=== PATIENT | female | born 1975 ===

== ENCOUNTER 2016-07-17 12:40 | Emergency (ER) | payer OTHER ==
--- NOTE | 2016-07-17 14:16 | ED PDOC ---
Lower Extremity Pain/Injury Time Seen by Provider: 07/17/16 12:44 Chief Complaint (Nursing): Lower Extremity Problem/Injury Chief Complaint (Provider): Left Hip/Knee Pain s/p Fall History Per: Patient History/Exam Limitations: no limitations Onset/Duration Of Symptoms: Hrs (earlier today) Current Symptoms Are (Timing): Still Present Severity: Moderate Additional Complaint(s): Jazmin Forrest is a 41 year old female, with no pertinent past medical history, who presents to the ED on 07/17/16 for the evaluation of a moderate amount of left hip/knee pain that she has experienced since having slipped and fallen while walking from a parking lot earlier today. Patient reports having landed directly onto the affected hip and that she had twisted the knee on her way to the ground. Denies head trauma or additional injuries. ED visit was prompted secondary to persistence of pain despite having medicated with Motrin 800mg. PMD: none Past Medical History Reviewed: Historical Data, Nursing Documentation, Vital Signs Vital Signs: Last Vital Signs Temp 98.7 F 07/17/16 12:41 Pulse 78 07/17/16 12:41 Resp 18 07/17/16 12:41 BP 96/45 L 07/17/16 12:41 Pulse Ox 98 07/17/16 12:41 - Medical History PMH: Hypothyroidism (Sriram's not on any meds) - Surgical History Surgical History: No Surg Hx - Family History Family History: States: Unknown Family Hx - Social History Current smoker - smoking cessation education provided: No Alcohol: Social Drugs: Denies - Home Medications Home Medications: Ambulatory Orders Medication Instructions Recorded Ibuprofen [Motrin] 600 mg PO TID 7 Days 01/06/16 - Allergies Allergies/Adverse Reactions: Allergies Allergy/AdvReac Type Severity Reaction Status Date / Time No Known Allergies Allergy Verified 07/17/16 12:41 Review of Systems Musculoskeletal: Positive for: Leg Pain (left hip/knee pain) Physical Exam - Reviewed Nursing Documentation Reviewed: Yes Vital Signs Reviewed: Yes - Physical Exam Appears: Positive for: Non-toxic, No Acute Distress Pulses-Dorsalis Pedis (L): 2+ Extremity: Positive for: Normal ROM (FROM of left knee/hip), Tenderness ( tenderness noted to left lateral hip/buttock; left knee is nontender). Negative for: Calf Tenderness, Deformity, Swelling Neurologic/Psych: Positive for: Alert, Oriented. Negative for: Motor/Sensory Deficits - Laboratory Results Urine POC: Negative - ECG O2 Sat by Pulse Oximetry: 98 (RA) Pulse Ox Interpretation: Normal - Radiology X-Ray: Interpreted by Me (L hip/pelvis and L knee x-rays) X-Ray Interpretation: No Acute Disease - Progress ED Course And Treament: Knee immobilizer and crutches provided. Medical Decision Making Medical Decision Makin:44 Initial Impression: left hip/knee injury; will r/o bony injury Initial Plan: * XR Left Hip w/Pelvis * XR Left Knee * Tramadol 50mg PO * Reevaluation Scribe Attestation: Documented by Nelda Pascual, acting as a scribe for Tyrell Yoon PA-C. Provider Scribe Attestation: All medical record entries made by the Scribe were at my direction and personally dictated by me. I have reviewed the chart and agree that the record accurately reflects my personal performance of the history, physical exam, medical decision making, and the department course for this patient. I have also personally directed, reviewed, and agree with the discharge instructions and disposition. Disposition - Clinical Impression Clinical Impression: Knee injury, Hip injury - Patient ED Disposition Is Patient to be Admitted: No - Disposition Referrals: Sarah Villalobos MD [Staff Provider] - Disposition: Routine/Home Disposition Time: 14:43 Condition: STABLE Additional Instructions: RICE Follow up with Dr. Villalobos for further evaluation. Instructions: Hip Sprain (ED), Knee Sprain (ED) Forms: [facility] ED School/Work Excuse
--- NOTE | 2016-07-17 15:02 | RAD ---
PROCEDURE: Left Hip X-ray Radiographs. HISTORY: trauma COMPARISON: None. FINDINGS: BONES: Normal. No fracture. JOINTS: Normal. SOFT TISSUES: Normal. OTHER FINDINGS: None. IMPRESSION: Normal left hip radiographs.
--- NOTE | 2016-07-17 15:03 | RAD ---
PROCEDURE: Left Knee Radiographs. HISTORY: Pain. COMPARISON: None. FINDINGS: BONES: Normal. No fracture. JOINTS: Normal. No osteoarthritis. JOINT EFFUSION: None. OTHER FINDINGS: None. IMPRESSION: Normal radiographs of the left knee.
[2016-07-17 16:48] VITALS: BP 110/64; PULSE 73; RESP 16; TEMP 98.4; O2SAT 100
== END 2016-07-17 16:47 | disposition home or self-care (01) ==
LOC: H.ER 12:40
DX: S89.92XA Unspecified injury of left lower leg, initial encounter (principal); S79.919A Unspecified injury of unspecified hip, initial encounter; W19.XXXA Unspecified fall, initial encounter; Y92.89 Other specified places as the place of occurrence of the external cause; E03.9 Hypothyroidism, unspecified

== ENCOUNTER 2016-10-30 09:54 | Day surgery (SDC) | payer OTHER ==
[2016-10-26 15:00] VITALS: BMI 24.1
[2016-10-30] MEDS ORDERED: Lactated Ringer's 1,000 ML IV ONE ×2 (10:52→13:04)
[2016-10-30] MEDS ORDERED: MethylPREDNISolone Depo 40 mg/ml Inj ONE (12:07)
[2016-10-30] MEDS ORDERED: Bupivacaine HCl 0.5% PF (10 ml) Inj ONE (12:07)
[2016-10-30] MEDS ORDERED: Lidocaine 1% Inj (20ml) ONE (12:07)
[2016-10-30] MEDS ORDERED: Propofol 10 mg/ml Inj (20 ML) ONE (12:20)
[2016-10-30] MEDS ORDERED: Midazolam 2 MG/2 ML VIAL ONE (12:21)
[2016-10-30] MEDS ORDERED: Bupivacaine 0.5% Inj(30mL) IJ ONE (12:55)
[2016-10-30] MEDS ORDERED: MethylPREDNISolone 40 mg Vial IM ONE (12:55)
[2016-10-30] MEDS ORDERED: Lidocaine 1% Inj (20ml) IJ ONE (12:56)
[2016-10-30] MEDS ORDERED: Lactated Ringer's 500 ML IV SCH (13:45)
[2016-10-30 14:35] VITALS: RESP 18
--- NOTE | 2016-10-30 14:38 | PCM.OP ---
Operative Report - Operative Report Date of Surgery/Procedure: 10/30/16 Time of Surgery/Procedure: 12:55 Surgeon: Kd Anesthesia/Sedation: Monitored anesthesia care Pre-Operative Diagnosis: Lumbar facet syndrome Post-Operative Diagnosis: Lumbar facet syndrome Indication for Surgery: Intractable pain Operative Findings: See below Procedure/Operation Description: After rediscussion of the procedure with the patient including its risks and efforts alternative CONSIDER possibility of no effect with increased pain patient consented to the procedure. She denies any recent infections bleeding tendencies or being on anticoagulants decision was then made to proceed to or. Patient was placed on the fluoroscopy fluoroscopy table in the prone position with 2 pillows underneath her abdomen. The back was prepped and draped in the usual sterile fashion and sterile technique was adhered to drain and her procedure. The L3, L4 and L5 medial branch nerves are located at the intersection of the superior articular process and the transverse process of the l4 and l5 pedicles also the sacral ala. The procedure was first performed on the right side by turning her for fluoroscopy towards the right and approximately 15. the skin overlying the 3 above target areas was infiltrated with 1% lidocaine using a 25-gauge needle. subsequently a 22- gauge 3-1/2 inch spinal needle was then incrementally advanced under fluoroscopic guidance until tip and the needle make bony contact with all 3 target areas. after satisfactory positioning of all 3 needles approximately 2 ml of 0.5% marcaine and depo-medrol mixture was gradually injected. the needles were rated with then removed and the same exact procedure was performed on the contralateral left side using the same medications and techniques. At the end of the procedure patient was transferred to the recovery room in good conditions. she did not have any signs of yardage estimator toxicity or any neurological deficit. she'll the following office in approximately 2-4 weeks. Estimated Blood Loss: none Complications: None Discharge & Condition: Stable for discharge home
--- NOTE | 2016-10-30 14:43 | RAD ---
PROCEDURE: Fluoroscopy up to 1 hr. HISTORY: PAIN MANAGEMENT COMPARISON: None available. TECHNIQUE: Standard protocol for this study/examination. FINDINGS: Total fluoroscopic time (continuous mode) utilized during the procedure: 24.3 seconds. IMPRESSION: Submitted images from the current procedure: 3.0 Less than 1 hr fluoroscopic time utilized during performance of the procedure.
[2016-10-30 14:53] VITALS: O2SAT 99
[2016-10-30 15:48] VITALS: BP 100/52; PULSE 75; TEMP 98.2
== END 2016-10-30 16:15 | disposition home or self-care (01) ==
LOC: H.OPSURG 09:54
PROVIDERS: ATTEND Anesthesiology
DX: M47.816 Spondylosis without myelopathy or radiculopathy, lumbar region (principal)

== ENCOUNTER 2016-12-25 09:14 | Day surgery (SDC) | payer OTHER ==
[2016-12-25] MEDS ORDERED: MethylPREDNISolone Depo 40 mg/ml Inj ONE (09:46)
[2016-12-25] MEDS ORDERED: Iohexol 300 10 ML ONE (09:47)
[2016-12-25] MEDS ORDERED: Bupivacaine HCl 0.25% PF (10 ml) Inj ONE (09:47)
[2016-12-25] MEDS ORDERED: Lidocaine 1% Inj (20ml) ONE (09:47)
[2016-12-25 09:48] VITALS: BMI 23.3
[2016-12-25] MEDS ORDERED: Lactated Ringer's 1,000 ML IV ONE (09:58)
[2016-12-25] MEDS ORDERED: Propofol 10 mg/ml Inj (20 ML) ONE (10:30)
[2016-12-25] MEDS ORDERED: HYDROmorphone 0.5 mg/0.5 ml ISec IVP PRN (11:30)
[2016-12-25] MEDS ORDERED: HYDROmorphone 0.5 mg/0.5 ml ISec ONE (11:30)
[2016-12-25 12:15] VITALS: RESP 18
[2016-12-25 14:13] VITALS: BP 122/61; PULSE 75; TEMP 98; O2SAT 98
--- NOTE | 2016-12-26 02:29 | OP ---
PROCEDURE DATE: 12/25/2016 PREOPERATIVE DIAGNOSIS: Lumbar radiculopathy and sacroiliitis. POSTOPERATIVE DIAGNOSIS: Lumbar radiculopathy and sacroiliitis. PROCEDURE: Left L4-L5 and L5-S1 transforaminal epidural steroid injection and also bilateral sacroiliac joint injection. ANESTHESIOLOGIST: Tip Payne MD SURGEON: Dianelys Yi MD TYPE OF ANESTHESIA: Monitored anesthesia care. COMPLICATIONS: None. SPECIMEN: None. DESCRIPTION OF PROCEDURE: After the discussion of the procedure with the patient including its risks, benefits, alternatives, outcome data, possibility of no effects or increased pain, the patient consented to the procedure. She denies any recent infection, bleeding tendencies or being on anticoagulants. Decision was then made to proceed to the OR. The patient was placed on fluoroscopy table in a prone position with 2 pillows underneath her abdomen. The back was prepped and draped in a usual sterile fashion and sterile technique was adhered to during the entire procedure. The L4 and L5 vertebral levels were first identified in the anterior and posterior view. Angulation towards the left at approximately 25 degrees was used to maximize the visualization of the left L4-L5 pedicles. The skin overlying the 6 o'clock position of both pedicles was infiltrated with 1% lidocaine using 25 gauge needle. Subsequently, a 22-gauge 3-1/2 inch spinal needle was then incrementally advanced under fluoroscopic guidance until tip of the needle walk into the intervertebral foramen. After satisfactory positioning of both needles, approximately 0.5 mL of Isovue contrast was injected showing appropriate epidural and nerve root spread without any signs of CSF or intervenous involvement. At this point, approximately 3 mL of 0.25% Marcaine and Depo-Medrol mixture was injected. The needle was then removed. Then, the fluoroscopy was moved distally until both sacroiliac joint come into view. The posterior opening to the inferior pole of both the sacroiliac joints were then identified and marked. The skin overlying both areas were infiltrated with 1% lidocaine using 25 gauge needle. Subsequently, a 22-gauge 3-1/2 inch spinal needle was then incrementally advanced under fluoroscopic guidance until tip of the needle walk into joint capsule. After appropriate placement of both needles, approximately 0.5 mL Isovue contrast was injected showing appropriate spread up the joint line. There was extravasation into the posterior aspect of the sacroiliac joint, but no intravenous uptake. After satisfactory positioning of both needles approximately 3 mL of 0.25% Marcaine and Depo-Medrol mixture was injected. The needle was then removed. The patient's back was cleaned and dry and bandage was applied. The patient was then transferred to recovery area in good condition without any signs of SUPERVISOR FIBER LOCKING toxicity or any neurological deficit. She will have to follow up in office in approximately 2 to 4 weeks. En-Troy Yi MD
== END 2016-12-25 14:35 | disposition home or self-care (01) ==
LOC: H.OPSURG 09:14
PROVIDERS: ATTEND Anesthesiology
DX: M47.816 Spondylosis without myelopathy or radiculopathy, lumbar region (principal); M46.1 Sacroiliitis, not elsewhere classified
CPT/HCPCS: 20552; 64483; 64484; J1030; J1170; J2704; J7120; Q9967

== ENCOUNTER 2017-02-10 10:15 | Day surgery (SDC) | payer OTHER ==
[2017-02-10 10:48] VITALS: RESP 18
[2017-02-10] MEDS ORDERED: Lidocaine 1% Inj (20ml) ONE (10:49)
[2017-02-10] MEDS ORDERED: MethylPREDNISolone Depo 40 mg/ml Inj ONE (10:49)
[2017-02-10] MEDS ORDERED: Bupivacaine HCl 0.5% PF (10 ml) Inj ONE (10:49)
[2017-02-10] MEDS ORDERED: Iohexol 300 10 ML ONE (10:49)
[2017-02-10 10:56] VITALS: BMI 23.0
[2017-02-10] MEDS ORDERED: Propofol 10 mg/ml Inj (20 ML) ONE (11:03)
[2017-02-10] MEDS ORDERED: Lactated Ringer's 1,000 ML IV ONE (11:10)
[2017-02-10] MEDS ORDERED: Lidocaine 1% Inj (20ml) IJ ONE (11:15)
[2017-02-10] MEDS ORDERED: methylPREDNISolone Depo 80 mg/ml Inj IM ONE (11:15)
[2017-02-10] MEDS ORDERED: Bupivacaine HCl 0.5% PF (10 ml) Inj IJ ONE (11:15)
[2017-02-10] MEDS ORDERED: Iohexol 300 10 ML IJ ONE (11:15)
[2017-02-10] MEDS ORDERED: Lactated Ringer's 1,000 ML IV SCH (11:45)
[2017-02-10 13:54] VITALS: BP 101/61; PULSE 78; TEMP 98.4; O2SAT 100
--- NOTE | 2017-02-10 22:21 | OP ---
PROCEDURE DATE: 02/10/2017 PREOPERATIVE DIAGNOSIS: Bilateral sacroiliitis. POSTOPERATIVE DIAGNOSIS: Bilateral sacroiliitis. PROCEDURE: Bilateral sacroiliac joint steroid injection. SURGEON: Dianelys Yi MD TYPE OF ANESTHESIA: Monitored anesthesia care. ANESTHESIA ADMINISTERED BY: Dr. Zazueta. COMPLICATIONS: None. SPECIMEN: None. DESCRIPTION OF PROCEDURE: After we had a discussion of the procedure with the patient including its risks, benefits, alternative, outcome data, possibility of no effect or increased pain, the patient consented to the procedure. She denies any recent infections, bleeding tendencies or being on anticoagulants. A decision was then made to proceed to the OR. The patient was placed on the fluoroscopy table in a prone position with 2 pillows underneath her abdomen. The back was prepped and draped in the usual sterile fashion and sterile technique was adhered during the entire procedure. The bilateral sacroiliac joints were first visualized in the anteroposterior view. The targets were at the inferior pole of both sacroiliac joints. The posterior opening to the sacroiliac joints was differentiated from the anterior opening by turning the fluoroscopy to an oblique angle. The procedure was first performed on the left side by turning the fluoroscopy towards the right at approximately 5 degrees. The skin overlying the target areas was infiltrated with 1% lidocaine using a 25-gauge needle. Subsequently, a 22-gauge 3-1/2 inch spinal needle was incrementally advanced under fluoroscopic guidance until the needle walked into the joint capsule. This was confirmed by injecting approximately 0.5 mL of Isovue contrast. After appropriate placement of the needle, approximately 3 mL of 0.25% Marcaine and Depo-Medrol mixture was injected. Then the needle was withdrawn and then placed along the medial border of the left sacroiliac joint at the level of S1 and S2 foramen. At this junction, approximately 2 mL of the anesthetic solution was deposited. Then, the needles were removed and the same exact procedure was performed on the contralateral right side using the same medications and techniques. At the end of the case, the patient's back was cleaned and dried and bandage was applied. The patient was then transferred to the recovery area in good conditions without any signs of CLAY HOISTER toxicity or any neurological deficits. She will have a followup in office in approximately 2 to 5 weeks. En-Troy Yi MD [facility] # [id number]
== END 2017-02-10 14:15 | disposition home or self-care (01) ==
LOC: H.OPSURG 10:15
PROVIDERS: ATTEND Anesthesiology
DX: M46.1 Sacroiliitis, not elsewhere classified (principal)
CPT/HCPCS: 20552; J1030; J1040; J2001; J2704; J7120; Q9967